=== PATIENT | female | born 1945 | race Caucasian/White ===

== ENCOUNTER 2023-05-14 09:50 | Emergency (ER) | payer OTHER ==
[~2023-05-14] VITALS: Ht 162.6 cm; Wt 68.0 kg
[~2023-05-14 09:50] MED LIST: ASPI-524 PO; METO50TA16 PO
[2023-05-14 10:09] VITALS: BP_SYST 128; PULSE 96; RESP 18; TEMP 98; O2SAT 99
[2023-05-14] MEDS ORDERED: HYDROcodone/ACETAMIN 5-325 MG TAB (NORCO/ VICODIN) PO ONE (11:00)
[2023-05-14 11:27] LABS: BASOPHILS # (AUTO) 0.1 K/uL (0.0-0.2); BASOPHILS % (AUTO) 0.4 % (0.0-2.0); EOSINOPHILS # (AUTO) 0.2 K/uL (0.0-0.4); EOSINOPHILS % (AUTO) 1.3 % (0.0-4.0); HEMATOCRIT 37.7 % (36-48); HEMOGLOBIN 12.1 g/dL (12.0-16.0); LYMPHOCYTES # (AUTO) 1.2 K/uL (1.0-5.5); LYMPHOCYTES % (AUTO) 9.4 % (20.5-51.5); MEAN CORPUSCULAR HEMOGLOBIN 28 pg (27-31); MEAN CORPUSCULAR HGB CONC 32 % (32-36); MEAN CORPUSCULAR VOLUME 88 fL (79.0-98.0); MONOCYTES # (AUTO) 1.2 K/uL (0.0-1.0); MONOCYTES % (AUTO) 9.5 % (1.7-9.3); NEUTROPHILS # (AUTO) 10.1 K/uL (1.8-7.7); NEUTROPHILS % (AUTO) 79.4 % (40.0-70.0); PLATELET COUNT (AUTO) 325 K/uL (130-430); RED CELL DISTRIBUTION WIDTH 13.9 % (9.0-15.0); WHITE BLOOD COUNT (AUTO) 12.7 K/uL (4.8-10.8)
[2023-05-14 11:30] LABS: ANION GAP 9 (5-15); CALCIUM 9.3 mg/dL (8.4-11.0); CHLORIDE 102 mmol/L (98-107); CREATININE 0.74 mg/dL (0.55-1.30); GLUCOSE 91 mg/dL (74-106); UREA NITROGEN, BLOOD 9 mg/dL (8-21)
[2023-05-14 11:37] LABS: ALANINE AMINOTRANSFERASE 11 U/L (12-78); ALBUMIN 3.3 g/dL (3.4-4.8); ASPARTATE AMINOTRANSFERASE 13 U/L (10-37); TOTAL BILIRUBIN 0.5 mg/dL (0.0-1.0)
[2023-05-14] MEDS ORDERED: FURO-150 PO (12:49)
[2023-05-14 13:01] VITALS: BP_SYST 128; PULSE 96; RESP 18; TEMP 98; O2SAT 99
== END 2023-05-14 13:03 | disposition home or self-care (01) ==
LOC: SED 09:50
DX: R60.0 Localized edema (principal); I10 Essential (primary) hypertension; E78.5 Hyperlipidemia, unspecified; Z79.899 Other long term (current) drug therapy
CPT/HCPCS: 99284; 93970; 71045; 80053; 83880; 85025; 84484; 36415; 93005; J7030